=== PATIENT | female | born 1960 | race Caucasian/White ===

== ENCOUNTER 2020-04-30 14:29 | Inpatient (IN) | payer OTHER ==
[2020-04-30 15:02] LABS: CHLORIDE,CL 100 mEq/L (98-106); SODIUM,NA 138 mEq/L (136-145)
[2020-04-30] MEDS ORDERED: Iopamidol 755 Mg/ML 100 ML Bottle IVPUSH ONE (15:19)
[2020-04-30] MEDS ORDERED: Temazepam 15 MG Cap PO PRN (16:20)
[2020-04-30] MEDS ORDERED: Ondansetron 4 MG/2 ML SDV IV PRN (16:20)
[2020-04-30] MEDS ORDERED: Ondansetron 4 MG Tab.DIS PO PRN (16:20)
[2020-04-30] MEDS ORDERED: Sodium Chloride 0.9% 10 ML Syringe FLUSH PRN (16:20)
[2020-04-30] MEDS: Dexamethasone 4 MG Tab PO SCH (17:35)
[2020-04-30] MEDS ORDERED: REMDESIVIR (EUA) 100 MG ONE (17:46)
[2020-04-30] MEDS: Enoxaparin 40 MG/0.4 ML Syringe SUBCUT SCH (19:46)
[2020-05-01 07:52] LABS: CHLORIDE,CL 103 mEq/L (98-106); SODIUM,NA 142 mEq/L (136-145)
[2020-05-01] MEDS: Dexamethasone 4 MG Tab PO SCH (07:55)
[2020-05-01] MEDS: Enoxaparin 40 MG/0.4 ML Syringe SUBCUT SCH ×2 (09:05→19:58)
[2020-05-01] MEDS: REMDESIVIR (EUA) 100 MG in Sodium Chloride 0.9% 100 ML IV SCH (17:22)
--- NOTE | 2020-05-01 20:33 | PCM.PN ---
- General Info Date of Service: 05/01/20 Admission Dx/Problem (Free Text): Viral pneumonitis COVID 19+ Functional Status: Reports: Pain Controlled, Tolerating Diet, Ambulating - Review of Systems General: Reports: Weakness, Fatigue, Malaise HEENT: Reports: Rhinitis. Denies: Ear Pain, Sinus Congestion Pulmonary: Reports: Shortness of Breath, Pleuritic Chest Pain, Cough Cardiovascular: Denies: Chest Pain, Edema, Lightheadedness Gastrointestinal: Reports: No Symptoms Genitourinary: Reports: No Symptoms Musculoskeletal: Reports: No Symptoms Skin: Reports: No Symptoms Neurological: Reports: No Symptoms - Patient Data Vitals - Most Recent: Last Vital Signs Temp 98.7 F 05/01/20 16:00 Pulse 64 05/01/20 16:00 Resp 18 05/01/20 16:00 BP 147/69 H 05/01/20 16:00 Pulse Ox 95 05/01/20 16:00 Weight - Most Recent: 260 lb I&O - Last 24 Hours: Intake & Output 05/01/20 05/01/20 05/01/20 06:59 14:59 22:59 Intake Total 400 560 Output Total 200 200 Balance 200 360 Lab Results Last 24 Hours: Laboratory Results - last 24 hr 05/01/20 05/01/20 05/01/20 Range/Units 07:15 07:15 07:15 WBC 2.2 L (5.0-10.0) 10^3/uL RBC 4.92 (4.00-5.50) 10^6/uL Hgb 14.9 (12.0-16.0) g/dL Hct 45.4 (37.0-47.0) % MCV 92.3 (82.0-94.0) fL MCH 30.3 (27.0-32.0) pg MCHC 32.8 L (33.0-38.0) g/dL RDW Coeff of Les 14.0 (11.0-15.0) % Plt Count 200 (150-400) 10^3/uL Neut % (Auto) 51.6 (35-85) % Lymph % (Auto) 38.4 (10-55) % [place] % (Auto) 10.0 (0-16) % Eos % (Auto) 0 (0-5) % Baso % (Auto) 0 (0-3) % Neut # (Auto) 1.13 L (1.80-7.00) 10^3/uL Lymph # (Auto) 0.84 L (1.00-4.80) 10^3/uL [place] # (Auto) 0.22 (0.00-0.80) 10^3/uL Eos # (Auto) 0.00 (0.00-0.45) 10^3/uL Baso # (Auto) 0.00 10^3/uL Sodium 142 (136-145) mEq/L Potassium 4.7 D (3.5-5.0) mEq/L Chloride 103 (98-106) mEq/L Carbon Dioxide 29 (21-32) mmol/L BUN 17 (7-18) mg/dL Creatinine 0.9 (0.6-1.0) mg/dL Est Cr Clr Drug Dosing 66.22 mL/min Estimated GFR (MDRD) > 60 (>=60) mL/min Glucose 129 H (75-99) mg/dL Calcium 8.7 (8.4-10.1) mg/dL Total Bilirubin 0.3 (0.0-1.0) mg/dL AST 32 (15-37) U/L ALT 33 (12-78) U/L Alkaline Phosphatase 108 (46-116) U/L C-Reactive Protein 6.2 H (0.2-0.8) mg/dL Total Protein 7.4 (6.4-8.2) g/dL Albumin 2.9 L (3.4-5.0) g/dL Blood Type A POSITIVE Med Orders - Current: Current Medications Dexamethasone (Dexamethasone) 6 mg PO DAILY [facility] Last Admin: 05/01/20 07:55 Dose: 6 mg Documented by: Enoxaparin Sodium (Lovenox) 40 mg SUBCUT BID [facility] Last Admin: 05/01/20 19:58 Dose: 40 mg Documented by: Remdesivir 100 mg/ Sodium (Chloride) 100 mls @ 100 mls/hr IV Q24H [facility] Stop: 05/04/20 17:59 Last Admin: 05/01/20 17:22 Dose: 100 mls/hr Documented by: Ondansetron HCl (Zofran Odt) 4 mg PO Q4H PRN PRN Reason: nausea, able to take PO Ondansetron HCl (Zofran) 4 mg IV Q4H PRN PRN Reason: Nausea/Vomiting Sodium Chloride (Saline Flush) 10 ml FLUSH ASDIRECTED PRN PRN Reason: Keep Vein Open Temazepam (Restoril) 15 mg PO BEDTIME PRN PRN Reason: Sleep Discontinued Medications Remdesivir 200 mg/ Sodium (Chloride) 250 mls @ 250 mls/hr IV ONETIME ONE Stop: 04/30/20 16:21 Last Admin: 04/30/20 17:35 Dose: 250 mls/hr Documented by: Remdesivir (Remdesivir (Eua)) Confirm Administered Dose 100 mls @ as directed .ROUTE .STK-MED ONE Stop: 04/30/20 17:47 Last Admin: 04/30/20 17:36 Dose: Not Given Documented by: Iopamidol (Isovue-370 (76%)) 100 ml IVPUSH ONETIME ONE Stop: 04/30/20 15:20 Last Admin: 04/30/20 15:29 Dose: 100 ml Documented by: - Exam Quality Assessment: Supplemental Oxygen General: Alert, Oriented HEENT: Mucous Membr. Moist/[place] Neck: Supple Lungs: Decreased Breath Sounds Cardiovascular: Regular Rate, Regular Rhythm GI/Abdominal Exam: Normal Bowel Sounds, Soft, Non-Tender Extremities: Normal Inspection, No Pedal Edema Skin: Warm, Dry Neurological: No New Focal Deficit Sepsis Event Note - Evaluation Sepsis Screening Result: No Definite Risk - Focused Exam Vital Signs: Vital Signs Temp Pulse Resp BP Pulse Ox 05/01/20 16:00 98.7 F 64 18 147/69 H 95 05/01/20 12:00 98.2 F 62 20 125/62 92 L - Problem List & Annotations (1) Viral pneumonitis SNOMED Code(s): 89887694 Code(s): J12.9 - VIRAL PNEUMONIA, UNSPECIFIED Status: Acute Priority: High Current Visit: Yes (2) COVID-19 SNOMED Code(s): 458711610 Code(s): U07.1 - COVID-19 Status: Acute Priority: High Current Visit: Yes - Problem List Review Problem List Initiated/Reviewed/Updated: Yes - My Orders Last 24 Hours: My Active Orders 04/30/20 20:00 Enoxaparin [Lovenox] 40 mg SUBCUT BID 05/01/20 17:00 Remdesivir (Eua) [Remdesivir (EUA)] 100 mg Sodium Chloride 0.9% [Normal Saline] 100 ml IV Q24H 05/02/20 05:11 C-REACTIVE PROTEIN [CHEM] DAILY CBC WITH AUTO DIFF [HEME] DAILY COMPREHENSIVE METABOLIC PN,CMP [CHEM] DAILY 05/03/20 05:11 C-REACTIVE PROTEIN [CHEM] DAILY CBC WITH AUTO DIFF [HEME] DAILY COMPREHENSIVE METABOLIC PN,CMP [CHEM] DAILY 05/04/20 05:11 C-REACTIVE PROTEIN [CHEM] DAILY CBC WITH AUTO DIFF [HEME] DAILY COMPREHENSIVE METABOLIC PN,CMP [CHEM] DAILY - Assessment Assessment:: Viral Pneumonitis Covid 19 - Plan Plan:: Patient stable this am. States "feels no worse, no better". Does admit that her pleuritic chest discomfort has improved. Still weak. Appetite diminished. Oxygen sat 94% on 2 liters this am. Now afebrile. Does admit that is chilled, sweating at times. Blood pressure stable. Labs are stable this am. Will continue with oxygen as needed. Dexamethasone. Remdesivir. Plasma when available. Reevaluate discharge potential in am.
[2020-05-02] MEDS: Dexamethasone 4 MG Tab PO SCH (07:39)
[2020-05-02] MEDS: Enoxaparin 40 MG/0.4 ML Syringe SUBCUT SCH ×2 (07:39→19:43)
[2020-05-02 08:09] LABS: CHLORIDE,CL 108 mEq/L (98-106); SODIUM,NA 144 mEq/L (136-145)
[2020-05-02] MEDS ORDERED: Sodium Chloride 0.9% 250 ML IV SCH (15:30)
[2020-05-02] MEDS: REMDESIVIR (EUA) 100 MG in Sodium Chloride 0.9% 100 ML IV SCH (17:25)
--- NOTE | 2020-05-02 20:17 | PCM.PN ---
- General Info Date of Service: 05/02/20 Admission Dx/Problem (Free Text): Viral pneumonitis COVID 19+ Functional Status: Reports: Pain Controlled, Tolerating Diet, Ambulating - Review of Systems General: Reports: Weakness, Fatigue HEENT: Reports: No Symptoms Pulmonary: Denies: Shortness of Breath, Cough Cardiovascular: Reports: No Symptoms Gastrointestinal: Denies: Abdominal Pain, Nausea, Vomiting Genitourinary: Reports: No Symptoms Musculoskeletal: Reports: No Symptoms Skin: Reports: No Symptoms Neurological: Reports: No Symptoms - Patient Data Vitals - Most Recent: Last Vital Signs Temp 98.3 F 05/02/20 20:00 Pulse 60 05/02/20 20:00 Resp 18 05/02/20 20:00 BP 129/77 05/02/20 20:00 Pulse Ox 96 05/02/20 20:00 Weight - Most Recent: 260 lb Lab Results Last 24 Hours: Laboratory Results - last 24 hr 05/02/20 05/02/20 05/02/20 Range/Units 07:35 07:35 08:06 WBC 4.6 L (5.0-10.0) 10^3/uL RBC 4.92 (4.00-5.50) 10^6/uL Hgb 15.0 (12.0-16.0) g/dL Hct 45.0 (37.0-47.0) % MCV 91.5 (82.0-94.0) fL MCH 30.5 (27.0-32.0) pg MCHC 33.3 (33.0-38.0) g/dL RDW Coeff of Les 13.9 (11.0-15.0) % Plt Count 242 (150-400) 10^3/uL Neut % (Auto) 59.9 (35-85) % Lymph % (Auto) 23.7 (10-55) % [place] % (Auto) 16.4 H (0-16) % Eos % (Auto) 0 (0-5) % Baso % (Auto) 0 (0-3) % Neut # (Auto) 2.73 (1.80-7.00) 10^3/uL Lymph # (Auto) 1.08 (1.00-4.80) 10^3/uL [place] # (Auto) 0.75 (0.00-0.80) 10^3/uL Eos # (Auto) 0.00 (0.00-0.45) 10^3/uL Baso # (Auto) 0.00 10^3/uL Sodium 144 (136-145) mEq/L Potassium 4.3 (3.5-5.0) mEq/L Chloride 108 H (98-106) mEq/L Carbon Dioxide 27 (21-32) mmol/L BUN 18 (7-18) mg/dL Creatinine 0.9 (0.6-1.0) mg/dL Est Cr Clr Drug Dosing 66.22 mL/min Estimated GFR (MDRD) > 60 (>=60) mL/min Glucose 121 H (75-99) mg/dL Calcium 8.6 (8.4-10.1) mg/dL Total Bilirubin 0.3 (0.0-1.0) mg/dL AST 28 (15-37) U/L ALT 32 (12-78) U/L Alkaline Phosphatase 94 (46-116) U/L C-Reactive Protein 2.6 H (0.2-0.8) mg/dL Total Protein 7.0 (6.4-8.2) g/dL Albumin 2.8 L (3.4-5.0) g/dL Urine Color Yellow (YELLOW) Urine Appearance Clear (CLEAR) Urine pH 6.0 (4.5-8.0) Ur Specific [place] 1.025 H (1.003-1.020) Urine Protein Negative (NEGATIVE) mg/dL Urine Glucose (UA) Negative (NEGATIVE) mg/dL Urine Ketones Negative (NEGATIVE) mg/dL Urine Occult Blood Negative (NEGATIVE) Urine Nitrite Negative (NEGATIVE) Urine Bilirubin Negative (NEGATIVE) Urine Urobilinogen 1.0 (0.2-1.0) EU/dL Ur Leukocyte Esterase Negative (NEGATIVE) Med Orders - Current: Current Medications Dexamethasone (Dexamethasone) 6 mg PO DAILY [facility] Last Admin: 05/02/20 07:39 Dose: 6 mg Documented by: Enoxaparin Sodium (Lovenox) 40 mg SUBCUT BID [facility] Last Admin: 05/02/20 19:43 Dose: 40 mg Documented by: Remdesivir 100 mg/ Sodium (Chloride) 100 mls @ 100 mls/hr IV Q24H [facility] Stop: 05/04/20 17:59 Last Admin: 05/02/20 17:25 Dose: 100 mls/hr Documented by: Sodium Chloride (Normal Saline) 250 mls @ 999 mls/hr IV ASDIRECTED [facility] Last Admin: 05/02/20 16:10 Dose: 999 mls/hr Documented by: Ondansetron HCl (Zofran Odt) 4 mg PO Q4H PRN PRN Reason: nausea, able to take PO Ondansetron HCl (Zofran) 4 mg IV Q4H PRN PRN Reason: Nausea/Vomiting Sodium Chloride (Saline Flush) 10 ml FLUSH ASDIRECTED PRN PRN Reason: Keep Vein Open Temazepam (Restoril) 15 mg PO BEDTIME PRN PRN Reason: Sleep Discontinued Medications Remdesivir 200 mg/ Sodium (Chloride) 250 mls @ 250 mls/hr IV ONETIME ONE Stop: 04/30/20 16:21 Last Admin: 04/30/20 17:35 Dose: 250 mls/hr Documented by: Remdesivir (Remdesivir (Eua)) Confirm Administered Dose 100 mls @ as directed .ROUTE .STK-MED ONE Stop: 04/30/20 17:47 Last Admin: 04/30/20 17:36 Dose: Not Given Documented by: Iopamidol (Isovue-370 (76%)) 100 ml IVPUSH ONETIME ONE Stop: 04/30/20 15:20 Last Admin: 04/30/20 15:29 Dose: 100 ml Documented by: - Exam General: Alert, Oriented HEENT: Mucous Membr. Moist/[place] Neck: Supple Lungs: Decreased Breath Sounds Cardiovascular: Regular Rate, Regular Rhythm GI/Abdominal Exam: Normal Bowel Sounds, Soft, Non-Tender Extremities: Normal Inspection, No Pedal Edema Skin: Warm, Dry Neurological: No New Focal Deficit Sepsis Event Note - Evaluation Sepsis Screening Result: No Definite Risk - Focused Exam Vital Signs: Vital Signs Temp Pulse Resp BP Pulse Ox 05/02/20 20:00 98.3 F 60 18 129/77 96 05/02/20 16:00 97.2 F 62 18 134/62 93 L 05/02/20 12:00 97.2 F 18 123/85 92 L - Problem List & Annotations (1) Viral pneumonitis SNOMED Code(s): 25694639 Code(s): J12.9 - VIRAL PNEUMONIA, UNSPECIFIED Status: Acute Priority: High Current Visit: Yes (2) COVID-19 SNOMED Code(s): 624343179 Code(s): U07.1 - COVID-19 Status: Acute Priority: High Current Visit: Yes - Problem List Review Problem List Initiated/Reviewed/Updated: Yes - My Orders Last 24 Hours: My Active Orders 05/03/20 05:11 C-REACTIVE PROTEIN [CHEM] DAILY CBC WITH AUTO DIFF [HEME] DAILY COMPREHENSIVE METABOLIC PN,CMP [CHEM] DAILY 05/04/20 05:11 C-REACTIVE PROTEIN [CHEM] DAILY CBC WITH AUTO DIFF [HEME] DAILY COMPREHENSIVE METABOLIC PN,CMP [CHEM] DAILY - Assessment Assessment:: Viral Pneumonitis Covid 19 - Plan Plan:: Patient stable this am. States "feels no worse, no better". Does admit that her pleuritic chest discomfort has improved. Still weak. Appetite diminished. Oxygen sat 94% on 2 liters this am. Now afebrile. Does admit that is chilled, sweating at times. Blood pressure stable. Labs are stable this am. Will continue with oxygen as needed. Dexamethasone. Remdesivir. Plasma when available. Reevaluate discharge potential in am. 05-02-2020 Patient is slowly improving. Oxygen used during the night, sats 91-92% this am on room air while up. Pleuritic chest pain has improved. Rare cough. Nonproductive. Afebrile. Labs are stable this am. CRP is improving. Will receive plasma today as due to arrive today. Continue with remdesivir today. Likely discharge home tomorrow.
[2020-05-03 07:58] LABS: CHLORIDE,CL 108 mEq/L (98-106); SODIUM,NA 145 mEq/L (136-145)
[2020-05-03] MEDS: Dexamethasone 4 MG Tab PO SCH (08:17)
[2020-05-03] MEDS: Enoxaparin 40 MG/0.4 ML Syringe SUBCUT SCH (08:17)
--- NOTE | 2020-05-03 09:05 | PCM.DCSUM1 ---
Discharge Summary - Hospital Course Free Text/Narrative:: Devora is a 60 year old female who presented to clinic with increased nasal congestion, cough, fatigue, diarrhea, fever and chest congestion. Has had frequent, nonproductive cough. Relates temps have been high for about 4 days. Does have chest wall discomfort. Test done, positive for COVID. Oxygen sat 89% on room air. Temp 101.3 in clinic. Chest xray essentially stable. CTA was done due to elevated d-dimer, showed bilateral infiltrates. Admitted for viral pneumonitis. Diagnosis: Stroke: No Modified Bowie Scale: No Symptoms at All Modified Bowie Scale Score: 0 - Discharge Data Discharge Date: 05/03/20 Discharge Disposition: Home, Self-Care 01 Condition: Good - Referral to Home Health Primary Care Physician: SHAYNE Mcclain - Discharge Diagnosis/Problem(s) (1) Viral pneumonitis SNOMED Code(s): 25061492 ICD Code: J12.9 - VIRAL PNEUMONIA, UNSPECIFIED Status: Acute Priority: High Current Visit: Yes (2) COVID-19 SNOMED Code(s): 793845486 ICD Code: U07.1 - COVID-19 Status: Acute Priority: High Current Visit: Yes - Patient Summary/Data Complications: none Hospital Course: Patient is feeling better. Still has generalized malaise and feels weak. Is ambulating in room. No pleuritic chest discomfort. Cough is nonproductive. Has remained afebrile. has been weaned off oxygen, is maintaining sats at 97% this am. Labs are stable, CRP is improving. Appetite is good. Will discharge home today. Continue dexamethasone for 3 more days at home. Follow up in 10 days for hospital recheck. - Patient Instructions Diet: Usual Diet as Tolerated Activity: As Tolerated - Discharge Plan *PRESCRIPTION DRUG MONITORING PROGRAM REVIEWED*: No *COPY OF PRESCRIPTION DRUG MONITORING REPORT IN PATIENT [place]: No Prescriptions/Med Rec: dexAMETHasone [Dexamethasone] 6 mg PO DAILY #3 tablet Home Medications: Home Meds dexAMETHasone [Dexamethasone] 6 mg PO DAILY #3 tablet 05/03/20 [Rx] Referrals: Aditi Javier PA [Primary Care Provider] - (Follow up with Amber in 10 days) - Discharge Summary/Plan Comment DC Time >30 min.: No - General Info Date of Service: 05/03/20 Admission Dx/Problem (Free Text: Viral pneumonitis COVID 19+ Functional Status: Reports: Pain Controlled, Tolerating Diet, Ambulating - Review of Systems General: Reports: Weakness, Fatigue, Malaise HEENT: Reports: Rhinitis Pulmonary: Reports: Cough. Denies: Shortness of Breath, Pleuritic Chest Pain Cardiovascular: Denies: Chest Pain, Edema, Lightheadedness Gastrointestinal: Denies: Abdominal Pain, Decreased Appetite, Nausea, Vomiting Genitourinary: Reports: No Symptoms Musculoskeletal: Reports: No Symptoms Skin: Reports: No Symptoms Neurological: Reports: No Symptoms - Patient Data Vitals - Most Recent: Last Vital Signs Temp 97.3 F 05/03/20 04:00 Pulse 56 L 05/03/20 04:00 Resp 20 05/03/20 04:00 BP 142/71 H 05/03/20 04:00 Pulse Ox 92 L 05/03/20 04:00 Weight - Most Recent: 260 lb I&O - Last 24 hours: Intake & Output 05/02/20 05/03/20 05/03/20 22:59 06:59 14:59 Intake Total 600 Output Total 300 Balance 300 Lab Results - Last 24 hrs: Laboratory Results - last 24 hr 05/02/20 05/03/20 05/03/20 Range/Units 08:06 05:11 05:11 WBC 5.0 (5.0-10.0) 10^3/uL RBC 4.53 (4.00-5.50) 10^6/uL Hgb 13.9 (12.0-16.0) g/dL Hct 41.8 (37.0-47.0) % MCV 92.3 (82.0-94.0) fL MCH 30.7 (27.0-32.0) pg MCHC 33.3 (33.0-38.0) g/dL RDW Coeff of Les 14.0 (11.0-15.0) % Plt Count 276 (150-400) 10^3/uL Neut % (Auto) 64.8 (35-85) % Lymph % (Auto) 22.8 (10-55) % [place] % (Auto) 12.4 (0-16) % Eos % (Auto) 0 (0-5) % Baso % (Auto) 0 (0-3) % Neut # (Auto) 3.24 (1.80-7.00) 10^3/uL Lymph # (Auto) 1.14 (1.00-4.80) 10^3/uL [place] # (Auto) 0.62 (0.00-0.80) 10^3/uL Eos # (Auto) 0.00 (0.00-0.45) 10^3/uL Baso # (Auto) 0.00 10^3/uL Sodium 145 (136-145) mEq/L Potassium 3.9 (3.5-5.0) mEq/L Chloride 108 H (98-106) mEq/L Carbon Dioxide 29 (21-32) mmol/L BUN 18 (7-18) mg/dL Creatinine 0.8 (0.6-1.0) mg/dL Est Cr Clr Drug Dosing 74.49 mL/min Estimated GFR (MDRD) > 60 (>=60) mL/min Glucose 102 H (75-99) mg/dL Calcium 8.4 (8.4-10.1) mg/dL Total Bilirubin 0.3 (0.0-1.0) mg/dL AST 25 (15-37) U/L ALT 32 (12-78) U/L Alkaline Phosphatase 82 (46-116) U/L C-Reactive Protein 1.3 H (0.2-0.8) mg/dL Total Protein 6.8 (6.4-8.2) g/dL Albumin 2.8 L (3.4-5.0) g/dL Urine Color Yellow (YELLOW) Urine Appearance Clear (CLEAR) Urine pH 6.0 (4.5-8.0) Ur Specific [place] 1.025 H (1.003-1.020) Urine Protein Negative (NEGATIVE) mg/dL Urine Glucose (UA) Negative (NEGATIVE) mg/dL Urine Ketones Negative (NEGATIVE) mg/dL Urine Occult Blood Negative (NEGATIVE) Urine Nitrite Negative (NEGATIVE) Urine Bilirubin Negative (NEGATIVE) Urine Urobilinogen 1.0 (0.2-1.0) EU/dL Ur Leukocyte Esterase Negative (NEGATIVE) Med Orders - Current: Current Medications Dexamethasone (Dexamethasone) 6 mg PO DAILY [facility] Last Admin: 05/03/20 08:17 Dose: 6 mg Documented by: Enoxaparin Sodium (Lovenox) 40 mg SUBCUT BID [facility] Last Admin: 05/03/20 08:17 Dose: 40 mg Documented by: Remdesivir 100 mg/ Sodium (Chloride) 100 mls @ 100 mls/hr IV Q24H [facility] Stop: 05/04/20 17:59 Last Admin: 05/02/20 17:25 Dose: 100 mls/hr Documented by: Ondansetron HCl (Zofran Odt) 4 mg PO Q4H PRN PRN Reason: nausea, able to take PO Ondansetron HCl (Zofran) 4 mg IV Q4H PRN PRN Reason: Nausea/Vomiting Sodium Chloride (Saline Flush) 10 ml FLUSH ASDIRECTED PRN PRN Reason: Keep Vein Open Temazepam (Restoril) 15 mg PO BEDTIME PRN PRN Reason: Sleep Discontinued Medications Remdesivir 200 mg/ Sodium (Chloride) 250 mls @ 250 mls/hr IV ONETIME ONE Stop: 04/30/20 16:21 Last Admin: 04/30/20 17:35 Dose: 250 mls/hr Documented by: Remdesivir (Remdesivir (Eua)) Confirm Administered Dose 100 mls @ as directed .ROUTE .STK-MED ONE Stop: 04/30/20 17:47 Last Admin: 04/30/20 17:36 Dose: Not Given Documented by: Sodium Chloride (Normal Saline) 250 mls @ 999 mls/hr IV ASDIRECTED [facility] Last Admin: 05/02/20 16:10 Dose: 999 mls/hr Documented by: Iopamidol (Isovue-370 (76%)) 100 ml IVPUSH ONETIME ONE Stop: 04/30/20 15:20 Last Admin: 04/30/20 15:29 Dose: 100 ml Documented by: - Exam General: Reports: Alert, Oriented HEENT: Reports: Mucous Membr. Moist/[place] Neck: Reports: Supple Lungs: Reports: Decreased Breath Sounds Cardiovascular: Reports: Regular Rate, Regular Rhythm GI/Abdominal Exam: Normal Bowel Sounds, Soft, Non-Tender Extremities: Normal Inspection, No Pedal Edema Skin: Reports: Warm, Dry Neurological: Reports: No New Focal Deficit
== END 2020-05-03 10:10 | disposition home or self-care (01) | DRG 177 ==
LOC: CC.FCMC 14:29 → CC.MS 16:14 → UNDOADMIN 16:14 → CC.MS 16:20
PROVIDERS: ADMIT Physician Assistant Medical; ATTEND Family Medicine
PROC: XW033E5 Introduction of Remdesivir Anti-infective into Peripheral Vein, Percutaneous Approach, New Technology Group 5 (ICD-10-PCS; principal; 2020-04-30)
PROC: 30233K1 Transfusion of Nonautologous Frozen Plasma into Peripheral Vein, Percutaneous Approach (ICD-10-PCS; 2020-05-02)
DX: U07.1 COVID-19 (principal); J12.89 Other viral pneumonia
CPT/HCPCS: 36415; 71046; 71275; 80053; 81003; 85025; 85379; 86140; 86900; 86901; J1650; J7050; J8540; Q9967; U0002